=== PATIENT | female | born 1955 | race Two or more races ===

== ENCOUNTER 2024-11-25 16:29 | Inpatient (IN) | payer OTHER ==
[~2024-11-25] VITALS: Ht 154.9 cm; Wt 44.5 kg
[2024-11-25] MEDS ORDERED: ATORVASTATIN CA40 MG (16:35)
[2024-11-25] MEDS ORDERED: ATORVASTATIN CA20 MG PO (16:35)
[2024-11-25] MEDS ORDERED: CARVEDILOL ER40 MG PO (16:35)
[2024-11-25] MEDS ORDERED: NIFEDIPINE 10 MG CAPSULE PO ONE ×2 (16:57→17:25)
--- NOTE | 2024-11-25 17:13 | NUR ---
PACIENTE ALERTA Y ORIENTADA X3, QUIEN REFIERE VENIR POR HIPERTENSION Y CEFALE DESDE POR LA MANANA. PTE INGIRIO DOS CARVEDILOL DE 6.25 Y NO TUVO MEJORA. EL EVELYNE LE QUITARON JOLTER Y ESTA PENDIENTE PARA EVALUACION. SE REALIZA EKG Y PRESENTA DRA. DAVIS.
[2024-11-25] MEDS ORDERED: NIFEDIPINE 20 MG CAPSULE PO ONE (17:15)
[2024-11-25] MEDS ORDERED: 0.9 % SODIUM CHLORIDE 1,000 ML IV ONE (17:15)
[2024-11-25] MEDS ORDERED: CLEVIDIPINE BUTYRATE 50 MG/100 ML VIAL IV SCH ×2 (17:15→20:00)
--- NOTE | 2024-11-25 17:50 | NUR ---
PACIENTE EVALUADA POR PETRA DAVIS. SE ORIENTA A PACIENTE SOBRE TRATAMIENTO MEDICO, REFIERE ENTENDER. SE COLECTAN MUESTRAS DE LABORATORIO Y SE CANALIZA A PACIENTE BAJO MEDIDAS ASEPTICAS. SE COMPLETA DOSIS DE PRACARDIA 20MG PO. SE ADMINISTRA IVF'S FRANCY ORDEN MEDICA. SE MANTIENE CLEVIPREX 50MG/100ML EN HOLD POR ORDEN VERBAL DE DRA DAVIS HASTA SER REEVALUADA LA PRESION ARTERIAL.
[2024-11-25 17:53] LABS: BASO % 1.3 % (0.1-1.2); EOS # 0.46 (0.04-0.54); EOS % 5.8 % (0.7-7.0); LYMPH # 2.34 (1.18-3.74); LYMPH % 29.4 % (19.3-53.1); MEAN PLATELET VOLUME 9.80 fl (9.4-12.4); MONO # 0.56 (0.24-0.82); MONO % 7.0 % (4.7-12.5); NEUT # 4.47 (1.56-6.13); NEUT % 56.2 % (34.0-71.1); RED CELL DISTRIBUTION WIDTH 13.5 % (11.6-14.4)
--- NOTE | 2024-11-25 17:54 | NUR ---
SE CONECTA PACIENTE EN MONITOR CARDIACO Y OXIMETRIA DE PULSO.
[2024-11-25 18:17] LABS: ALT/SGPT 23.0 U/L (12-78); AST/SGOT 18.0 U/L (15-37); BILIRUBIN TOTAL 0.29 mg/dL (0.3-1.2); BUN CREA RATIO 19.0 (7.0-25.0); CREATININE SERUM 0.97 mg/dL (0.55-1.02); GFR 56.61; GLOBULINA 3.9 G/DL (2.4-3.5); GLUCOSE FASTING 121.0 mg/dL (65-100); OSMOLALITY SERUM 286.0 MOSM/KG (275-295)
[2024-11-25] MEDS ORDERED: LABETALOL HCL 100 MG/20 ML ML ONE (18:40)
[2024-11-25] MEDS ORDERED: LABETALOL HCL 200 MG/40 ML VIAL IV ONE (18:45)
[2024-11-25] MEDS ORDERED: CLONAZEPAM 0.5 MG TABLET PO ONE (19:00)
[2024-11-25] MEDS ORDERED: ENOXAPARIN SODIUM 40 MG/0.4 ML SYRINGE SUBCUTANEO SCH (20:44)
[2024-11-25] MEDS ORDERED: ATORVASTATIN CALCIUM 40 MG TABLET PO SCH (20:44)
[2024-11-25] MEDS ORDERED: ACETAMINOPHEN 500 MG GEL..CAP PO PRN (20:45)
[2024-11-25] MEDS ORDERED: 0.9 % SODIUM CHLORIDE 1,000 ML IV SCH (20:45)
[2024-11-25] MEDS ORDERED: NITROGLYCERIN IN 5 % DEXTROSE 250 ML IV SCH (20:45)
[2024-11-25] MEDS ORDERED: NITROGLYCERIN IN 5 % DEXTROSE 50 MG/250 ML BOTTLE IV ONE (20:59)
[2024-11-25] MEDS ORDERED: CARVEDILOL 3.125 MG TABLET PO SCH (21:00)
[2024-11-25 21:54] LABS: INR 0.99
[2024-11-25 22:15] LABS: COVID-19 AG NEGATIVE (NEGATIVE)
[2024-11-25 23:00] VITALS: BP 155/74; O2SAT 97
[2024-11-25] MEDS ORDERED: ENOXAPARIN SODIUM 40 MG/0.4 ML SYRINGE SUBCUTANEO ONE (23:19)
[2024-11-25] MEDS ORDERED: ACETAMINOPHEN 500 MG GEL..CAP PO ONE (23:35)
[2024-11-25 23:47] LABS: URINE APPEARANCE Clear; URINE BILIRRUBIN Negative (NEGATIVE); URINE BLOOD Trace; URINE COLOR Yellow; URINE GLUCOSE Negative (NEGATIVE); URINE KETONE Negative (NEGATIVE); URINE LEUKOCYTE Negative; URINE NITRATE Negative; URINE PROTEIN Negative (NEGATIVE); URINE UROBILINOGEN 0.2 E.U./dl
[2024-11-25 23:50] LABS: URINE BACTERIA 20.3 uL (0.0-1933); URINE EPITHELIAL CELLS 2.1 uL (0.0-38.8); URINE RBC 31.8 uL (0.0-20.8); URINE WBC 2.1 uL (0.0-23.2)
[2024-11-26] VITALS (10 sets, daily range): BP systolic 131–194; BP diastolic 60–93; O2SAT 97–100
[2024-11-26] LABS: URINE CAST 0.00 uL (0.0-1.40)
[2024-11-26] MEDS ORDERED: ACETAMINOPHEN 500 MG GEL..CAP PO ONE (05:02)
[2024-11-26] MEDS ORDERED: FAMOTIDINE/PF 20 MG/2 ML VIAL ONE (08:04)
[2024-11-26] MEDS ORDERED: ENOXAPARIN SODIUM 40 MG/0.4 ML SYRINGE SUBCUTANEO ONE (08:04)
[2024-11-26 08:36] LABS: CHOL HDL RATIO 2.5 (0-5.0); HDL 76.0 mg/dl (40-60); LDL 87.0 mg/dl (0-130); TSH 1.51 uIU/mL (0.358-3.74); VLDL 24.0 (0-39)
[2024-11-26] MEDS ORDERED: FAMOTIDINE/PF 20 MG in 0.9 % SODIUM CHLORIDE 8 ML IV PUSH SCH (09:00)
[2024-11-26] MEDS ORDERED: IRBESARTAN 300 MG TABLET PO SCH (09:40)
[2024-11-26] MEDS ORDERED: CLEVIDIPINE BUTYRATE 50 MG/100 ML VIAL IV SCH (09:45)
[2024-11-26] MEDS ORDERED: CLEVIDIPINE BUTYRATE 100 ML IV SCH (10:15)
[2024-11-26] MEDS ORDERED: CARVEDILOL 25 MG TABLET PO SCH (21:00)
[2024-11-26] MEDS ORDERED: DOXAZOSIN MESYLATE 2 MG TABLET PO SCH (21:00)
[2024-11-27] VITALS (15 sets, daily range): BP systolic 116–180; BP diastolic 55–80; O2SAT 99–100
[2024-11-27] MEDS ORDERED: NIFEDIPINE 30 MG TAB.SA.OSM PO ONE (10:30)
[2024-11-27] MEDS ORDERED: hydrALAZINE HCL 20 MG VIAL ONE (16:12)
[2024-11-27] MEDS ORDERED: hydrALAZINE HCL 20 MG VIAL IV STA (16:22)
[2024-11-27] MEDS ORDERED: NIFEDIPINE 30 MG TAB.SA.OSM PO PRN (16:30)
[2024-11-27] MEDS ORDERED: hydrALAZINE HCL 20 MG VIAL IV PRN (16:30)
[2024-11-28 00:29] VITALS: O2SAT 98
[2024-11-28 00:45] VITALS: BP 145/78; O2SAT 98
[2024-11-28 06:50] VITALS: O2SAT 99
[2024-11-28 07:58] VITALS: O2SAT 98
[2024-11-28 08:00] VITALS: BP 160/86; O2SAT 99
== END 2024-11-28 14:50 | disposition home or self-care (01) | DRG 305 ==
LOC: ER 18:07 → ICU-2 21:14 → SURG 11-27 18:35
PROVIDERS: General Practice; ADMIT Internal Medicine; ATTEND Internal Medicine
PROC: BW28ZZZ Computerized Tomography (CT Scan) of Head (ICD-10-PCS; principal; 2024-11-25)
PROC: B24BZZZ Ultrasonography of Heart with Aorta (ICD-10-PCS; 2024-11-25)
PROC: 4A12X4Z Monitoring of Cardiac Electrical Activity, External Approach (ICD-10-PCS; 2024-11-27)
DX: I16.1 Hypertensive emergency (principal); J44.9 Chronic obstructive pulmonary disease, unspecified; E78.5 Hyperlipidemia, unspecified